=== PATIENT | female | born 1985 | race African-American/Black ===

== ENCOUNTER 2016-05-05 09:11 | Emergency (ER) | payer BC ==
[2016-05-05 09:20] VITALS: BP 144/91
== END 2016-05-05 11:18 | disposition left against medical advice (07) ==
LOC: ER 09:11
DX: Z53.21 Procedure and treatment not carried out due to patient leaving prior to being seen by health care provider (principal)

== ENCOUNTER 2017-12-11 00:40 | Emergency (ER) | payer SELFPAY ==
[2017-12-11] MEDS ORDERED: PENICILLIN V POTASSIUM 500 MG TABLET PO ONE (01:40)
[2017-12-11] MEDS ORDERED: IBUPROFEN 800 MG TABLET PO PRN (01:41)
--- NOTE | 2017-12-11 01:46 | ER Document Report ---
HPI - HPI Patient complains to provider of: toothache Pain Level: 5 Context: Patient is a 32-year-old female presenting to the emergency department complaining of left lower tooth pain. Patient states she has had the pain intermittently for the last 6 months. Patient states she does not have insurance and has not been to a dentist for the last couple of years. Patient states she was on lisinopril 10 mg every day for hypertension but also without insurance could not afford it so has not taken it for the last couple months. Patient states she has been taking Aleve and Goody powder every 4 hours for the pain. Patient states last time she took Aleve was around 2000 hrs. this evening. Patient denies fever, chest pain, shortness of breath, nausea, vomiting area, dysuria. Past medical history: Hypertension Medications: Currently none Allergies: None - REPRODUCTIVE Reproductive: DENIES: : Past Medical History - General Information source: Patient - Social History Smoking Status: Unknown if Ever Smoked Lives with: Family Family History: Reviewed & Not Pertinent - Past Medical History Cardiac Medical History: Reports: Hx Hypertension Endocrine Medical History: Denies: Hx Diabetes Mellitus Type 1, Hx Diabetes Mellitus Type 2 Renal/ Medical History: Denies: Hx Peritoneal Dialysis Malignancy Medical History: Denies: Hx Breast Cancer - Immunizations Immunizations up to date: Yes Hx Diphtheria, Pertussis, Tetanus Vaccination: Yes Vertical Provider Document - CONSTITUTIONAL Agree With Documented VS: Yes Notes: GENERAL: Alert, interacts well. No acute distress. HEAD: Normocephalic, atraumatic. EYES: Pupils equal, round, and reactive to light. Extraocular movements intact. ENT: Oral mucosa moist, tongue midline. No Attila's angina, obvious dental carry noted tooth #19 with partial fracture. No erythema, fluctuance, induration noted to the gumline. NECK: Full range of motion. Supple. Trachea midline. No adenopathy appreciated LUNGS: Clear to auscultation bilaterally, no wheezes, rales, or rhonchi. No respiratory distress. HEART: Regular rate and rhythm. No murmur ABDOMEN: Soft, non-tender. Non-distended. Bowel sounds present in all 4 quadrants. EXTREMITIES: Moves all 4 extremities spontaneously. No edema, normal radial and dorsalis pedis pulses bilaterally. No cyanosis. BACK: no cervical, thoracic, lumbar midline tenderness. No saddle anesthesia, normal distal neurovascular exam. NEUROLOGICAL: Alert and oriented x3. Normal speech. cranial nerves II through XII grossly intact. PSYCH: Normal affect, normal mood. SKIN: Warm, dry, normal turgor. No rashes or lesions noted. - INFECTION CONTROL TRAVEL OUTSIDE OF THE [place] IN LAST 30 DAYS: No Course - Re-evaluation Re-evalutation: 12/11/17 01:43 Patient continues to only complain of tooth pain. Patient continues to deny chest pain, shortness of breath, headache. Discussed at length with patient good Rx application on phone to get decrease pricing on prescription medications. Discussed refilling lisinopril prescription, antibiotic use, Motrin use for pain. Discussed follow-up at [facility] and dental clinic. - Vital Signs Vital signs: Temp Pulse Resp BP Pulse Ox 98.7 F 87 18 164/126 H 100 12/11/17 00:48 12/11/17 00:48 12/11/17 00:48 12/11/17 00:48 12/11/17 00:48 Discharge - Discharge Clinical Impression: Toothache, Dental caries Hypertension Qualifiers: Hypertension type: unspecified Qualified Code(s): I10 - Essential (primary) hypertension Condition: Stable Disposition: HOME, SELF-CARE Instructions: [facility], Penicillin V K ([facility]), Toothache ([facility]) Additional Instructions: [facility] [address], [address] As we discussed you should take antibiotics as prescribed. Follow-up with [facility] and [facility], all phone numbers are provided in this packet. He should also start taking your lisinopril for your hypertension. Return to the emergency room should you develop a headache, chest pain, shortness of breath, increased pain in your tooth, any other concerning symptoms. Prescriptions: Lisinopril 10 mg PO DAILY #30 tablet Penicillin V Potassium [Penicillin Vk 500 mg Tablet] 500 mg PO BID #20 tablet Referrals: [facility] [Provider Group] - Follow up as needed
[2017-12-11 02:01] VITALS: BP 156/108
== END 2017-12-11 02:06 | disposition home or self-care (01) ==
LOC: ER 00:40
DX: K02.9 Dental caries, unspecified (principal); K08.89 Other specified disorders of teeth and supporting structures; I10 Essential (primary) hypertension; Z79.899 Other long term (current) drug therapy
CPT/HCPCS: 99282